=== PATIENT | female | born 1960 | race African-American/Black ===

== ENCOUNTER 2016-11-25 17:01 | Emergency (ER) | payer MEDICAID ==
[~2016-11-25] VITALS: Ht 167.6 cm; Wt 70.0 kg
[2016-11-26 08:26] LABS: HEMATOCRIT. 37.5 % (36.0-48.0); HEMOGLOBIN. 12.8 g/dL (12.0-16.0); MEAN CORPUSCULAR HEMOGLOBIN 28.7 pg (28.0-32.0); MEAN CORPUSCULAR VOLUME 84.2 fL (81.0-99.0); RED BLOOD CELL COUNT 4.45 mill/uL (4.2-5.4); RED CELL DISTRIBUTION WIDTH 13.8 % (11.6-14.6)
[2016-11-26 08:41] LABS: CARBON DIOXIDE 29 mEq/L (21-32); CHLORIDE 101 mEq/L (98-107)
[2016-11-26 08:51] LABS: ATYPICAL LYMPHOCYTES 2
[2016-11-26 08:54] LABS: PLATELET ESTIMATE NORMAL
[2016-11-26 08:55] LABS: MEAN PLATELET VOLUME 6.7 fl (7.4-10.4); PLATELET 190 x1000/uL (130-400)
[2016-11-26] MEDS: KETOROLAC 60MG/2ML VIAL IM ONE (10:34)
[2016-11-26 10:44] LABS: CLARITY URINE CLEAR (CLEAR); COLOR URINE YELLOW (YELLOW); GLUCOSE URINE NEGATIVE (NEGATIVE); KETONES URINE NEGATIVE (NEGATIVE); LEUKOCYTE ESTERASE URINE 1+ (NEGATIVE); NITRITE URINE NEGATIVE (NEGATIVE); OCCULT BLOOD URINE NEGATIVE (NEGATIVE); PROTEIN URINE TRACE (NEGATIVE); SPECIFIC GRAVITY URINE 1.024 (1.005-1.030); UROBILINOGEN URINE 0.2 E.U./dL (0.2-1.0)
[2016-11-26] MEDS: ACETAMINOPHEN 325MG TABLET PO ONE (11:38)
[2016-11-26 15:54] VITALS: BP 93/55
== END 2016-11-26 16:02 | disposition home or self-care (01) ==
LOC: ER 17:01
DX: N39.0 Urinary tract infection, site not specified (principal); E07.9 Disorder of thyroid, unspecified
CPT/HCPCS: 36415; 80053; 81001; 85025; 96372; 99284; J1885; Z7610